=== PATIENT | female | born 1975 | race Caucasian/White ===

== ENCOUNTER 2017-01-30 13:06 | Emergency (ER) | payer MEDICAID ==
[2017-01-30 13:11] VITALS: BP 143/96
--- NOTE | 2017-01-30 13:54 | EDM.PDOC ---
ED HPI GENERAL MEDICAL PROBLEM - General Chief Complaint: General Stated Complaint: Headache/body aches, cough Time Seen by Provider: 01/30/17 13:38 Source of Information: Reports: Patient History Limitations: Reports: No Limitations - History of Present Illness INITIAL COMMENTS - FREE TEXT/NARRATIVE: 1 week history of URI cough and congestion, sorethroat with treatment on with Z-Pack states cessation of sore throat but persistant cough, congestion, and myalgias. She is eating and drinking fair. Oatmeal this am. Onset: Gradual Onset Date: 01/27/17 Onset Time: 08:00 Duration: Day(s):, Waxing/Waning, Other (Concerned with going to [facility] this evening. Stress with travel.) Location: Reports: Head (Temporal region since this am-currently menstrating No birthcontrol.) Quality: Reports: Dull, Pressure Severity: Moderate Improves with: Reports: Rest Worsens with: Reports: Movement Context: Reports: Activity Associated Symptoms: Reports: Cough, cough w sputum, Headaches, Malaise, Weakness Treatments CONSULTANT INTERN: Reports: Home Treatments, NSAIDS Headache Pain Score (Numeric/FACES): 6 Generalized Pain Score (Numeric/FACES): 4 - Related Data Allergies Allergy/AdvReac Type Severity Reaction Status Date / Time No Known Allergies Allergy Verified 01/30/17 13:01 Home Meds: Home Meds . [No Known Home Meds] 10/22/15 [History] Past Medical History - Past Health History Medical/Surgical History: Denies Medical/Surgical History HEENT History: Reports: Impaired Vision (glasses) Cardiovascular History: Reports: Other (See Below) (Cardiovascular workup WNL) Gastrointestinal History: Reports: GERD : 2 Para: 2 Psychiatric History: Reports: Anxiety - Past Surgical History HEENT Surgical History: Reports: Other (See Below) Other HEENT Surgeries/Procedures: wisdom teeth Cardiovascular Surgical History: Reports: Other (See Below) Other Cardiovascular Surgeries/Procedures: angiogram Social & Family History - Family History Cardiac: Reports: NC - Tobacco Use Smoking Status *Q: Current Every Day Smoker Years of Tobacco use: 20 Packs/Tins Daily: 0.5 Used Tobacco, but Quit: Yes Month Tobacco Last Used: 01/30/2017 - Caffeine Use Caffeine Use: Reports: Coffee - Alcohol Use Alcohol Use History: Yes Alcohol Use Frequency: Rarely - Recreational Drug Use Recreational Drug Use: No - Living Situation & Occupation Living situation: Reports: 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 Denies: Hemoptysis Cardiovascular: Reports: Chest Pain. Denies: Dyspnea on Exertion, Edema, Lightheadedness, Palpitations Endocrine: Reports: No Symptoms GI/Abdominal: Reports: No Symptoms : Reports: No Symptoms Musculoskeletal: Reports: Neck Pain, Shoulder Pain, Muscle Pain, Muscle Stiffness Skin: Reports: No Symptoms Neurological: Reports: No Symptoms Psychiatric: Reports: Anxiety, Other (PMS) Hematologic/Lymphatic: Reports: No Symptoms Immunologic: Reports: No Symptoms ED EXAM, GENERAL - Physical Exam Exam: See Below Exam Limited By: No Limitations General Appearance: Alert, WD/WN, No Apparent Distress Eye Exam: Bilateral Eye: EOMI Ear Exam: Bilateral Ear: Auricle Normal, Canal Normal, TM normal Nose: Normal Inspection, Normal Mucosa Throat/Mouth: Normal Inspection, Normal Lips, Normal Teeth, Normal Oropharynx Head: Atraumatic, Normocephalic Neck: Normal Inspection, Supple, Non-Tender, Full Range of Motion Respiratory/Chest: No Respiratory Distress, No Accessory Muscle Use, Chest Non- Tender, Crackles, Other (Inspiratory wheezes) Cardiovascular: Normal Peripheral Pulses, Regular Rate, Rhythm, No Edema, No Gallop, No JVD Peripheral Pulses: 3+: Radial (L), Radial (R), Dorsalis Pedis (L), Dorsalis Pedis (R) GI/Abdominal: Soft, Non-Tender (Female) Exam: Deferred Rectal (Female) Exam: Deferred Back Exam: Normal Inspection, Full Range of Motion Extremities: Normal Inspection, Normal Range of Motion, Non-Tender, No Pedal Edema, Normal Capillary Refill Neurological: Alert, Oriented, CN II-XII Intact, Normal Cognition, Normal Gait, Normal Reflexes, No Motor/Sensory Deficits Psychiatric: Normal Affect, Normal Mood Skin Exam: Warm, Dry, Intact, Normal Color, No Rash Lymphatic: No Adenopathy Course - Vital Signs Last Recorded V/S: Last Vital Signs Temp 36.6 C 01/30/17 13:07 Pulse 104 H 01/30/17 13:07 Resp 20 01/30/17 13:07 BP 143/96 H 01/30/17 13:07 Pulse Ox 99 01/30/17 13:07 - Orders/Labs/Meds Orders: Active Orders 24 hr Category Date Time Status Chest 2V [CR] Stat Exams 01/30/17 14:00 Taken Labs: Laboratory Tests 01/30/17 01/30/17 01/30/17 Range/Units 13:35 13:35 13:35 WBC 5.2 (5.0-10.0) 10^3/uL RBC 3.88 L (4.00-5.50) 10^6/uL Hgb 12.1 (12.0-16.0) g/dL Hct 36.2 L (37.0-47.0) % MCV 93.3 (82.0-94.0) fL MCH 31.2 (27.0-32.0) pg MCHC 33.4 (33.0-38.0) g/dL RDW Coeff of Padmaja 12.4 (11.0-15.0) % Plt Count 218 (150-400) 10^3/uL Neut % (Auto) 56.7 (35-85) % Lymph % (Auto) 35.3 (10-55) % [place] % (Auto) 6.4 (0-16) % Eos % (Auto) 1.4 (0-5) % Baso % (Auto) 0.2 (0-3) % Neut # (Auto) 2.94 (1.80-7.00) 10^3/uL Lymph # (Auto) 1.83 (1.00-4.80) 10^3/uL [place] # (Auto) 0.33 (0.00-0.80) 10^3/uL Eos # (Auto) 0.07 (0.00-0.45) 10^3/uL Baso # (Auto) 0.01 10^3/uL C-Reactive Protein 0.4 (0.2-0.8) mg/dL Monoscreen Negative Meds: Medications Discontinued Medications Generic Name Dose Route Start Last Admin Trade Name Freq PRN Reason Stop Dose Admin Doxycycline Monohydrate 3 packet 01/30/17 14:10 Take Home: Doxycycline 100 Mg, 4 Tab Pack PO 01/30/17 14:11 ONETIME ONE Departure - Departure Time of Disposition: 14:47 Disposition: Home, Self-Care 01 Condition: Good Clinical Impression: Anxiety about health, Pneumonia, Tobacco use Chest pain Qualifiers: Chest pain type: unspecified Qualified Code(s): R07.9 - Chest pain, unspecified - Discharge Information Referrals: Meagan Mejia PA [Primary Care Provider] - Forms: ED Department Discharge Additional Instructions: Finish Z -pack Doxycycline 100 mg BID x 7 days Cease Tobacco Use Fluids Hydration F/U with PCP in Tuesday after returning from [place]. ER if S/S worsen fever, SOB and concerns. - Problem List & Annotations (1) Tobacco use SNOMED Code(s): 940211387 Code(s): Z72.0 - TOBACCO USE Status: Acute Current Visit: Yes (2) Anxiety about health SNOMED Code(s): 688205871 Code(s): F41.8 - OTHER SPECIFIED ANXIETY DISORDERS Status: Acute Priority : High Current Visit: Yes (3) Pneumonia SNOMED Code(s): 627413292 Code(s): J18.9 - PNEUMONIA, UNSPECIFIED ORGANISM Status: Acute Current Visit: Yes - Problem List Review Problem List Initiated/Reviewed/Updated: Yes - My Orders Last 24 Hours: My Active Orders 01/30/17 14:00 Chest 2V [CR] Stat - Assessment/Plan Last 24 Hours: My Active Orders 01/30/17 14:00 Chest 2V [CR] Stat Assessment:: Chronic cough probable. Chronic bronchitis. Tobacco Use Anxiety Plan: Finish Z -pack Doxycycline 100 mg BID x 7 days Cease Tobacco Use Fluids Hydration F/U with PCP in Tuesday after returning from [place]. ER if S/S worsen fever, SOB and concerns.
[2017-01-30] MEDS ORDERED: Take Home: Doxycycline 100 MG Tab, 4 Tab Pack PO ONE (14:10)
[2017-01-30] MEDS ORDERED: Doxycycline 100 MG Tab ONE (14:55)
== END 2017-01-30 15:06 | disposition home or self-care (01) ==
LOC: CC.ED 13:06
DX: J18.9 Pneumonia, unspecified organism (principal); R07.9 Chest pain, unspecified; F41.9 Anxiety disorder, unspecified; K21.9 Gastro-esophageal reflux disease without esophagitis; F17.210 Nicotine dependence, cigarettes, uncomplicated; Z72.0 Tobacco use
CPT/HCPCS: 36415; 71020; 85025; 86140; 86308; 87804; 99284; A9270

== ENCOUNTER 2021-08-17 21:16 | Emergency (ER) | payer BC ==
[2021-08-17 21:36] VITALS: BP 146/86; PULSE 85
[2021-08-17] MEDS ORDERED: Diphtheria,Pertussis(Acell),Tetanus Vaccine 0.5 ML Syringe IM ONE (21:44)
[2021-08-17] MEDS ORDERED: Cephalexin 500 MG Cap PO ONE (22:46)
[2021-08-17] MEDS ORDERED: Bacitracin Oint 28.35 GM Tube TOP ONE (22:48)
[2021-08-18] MEDS ORDERED: Bacitracin Oint 28.35 GM Tube TOP ONE (22:48)
== END 2021-08-17 23:20 | disposition home or self-care (01) ==
LOC: CC.ED 21:16
DX: S61.307A Unspecified open wound of left little finger with damage to nail, initial encounter (principal); K21.9 Gastro-esophageal reflux disease without esophagitis; Z23 Encounter for immunization; W26.9XXA Contact with unspecified sharp object(s), initial encounter
CPT/HCPCS: 73140-F4; 90471; 90715; 99283; A9270-GY